=== PATIENT | female | born 1980 | race Caucasian/White ===

== ENCOUNTER 2019-07-14 05:26 | Day surgery (SDC) | payer OTHER ==
[2019-07-13 13:18] VITALS: BMI 32.5
[2019-07-14] MEDS ORDERED: IBUPROFEN 400 MG TABLET (FP) PO PRN (12:58)
[2019-07-14] MEDS ORDERED: ONDANSETRON 4 MG/2 ML VIAL IVPUSH PRN ×2 (12:58→14:37)
[2019-07-14] MEDS ORDERED: ACETAMINOPHEN 325 MG TABLET (FP) PO PRN (12:58)
--- NOTE | 2019-07-14 12:59 | HP ---
Admitting History and Physical - Admission History of Present Illness: 39 yo s/p SAB, ultrasound suspicious of retained products of conception Limitations to Obtaining History: No Limitations - Past Medical History ...LMP Comment: lmp- 3weeks ago - Smoking History Smoking history: Never smoked - Alcohol/Substance Use Hx Alcohol Use: No Home Medications - Allergies Allergies/Adverse Reactions: Allergies Allergy/AdvReac Type Severity Reaction Status Date / Time No Known Allergies Allergy Verified 07/13/19 13:18 - Home Medications Home Medications: Ambulatory Orders Simvastatin [Zocor -] 40 mg PO HS 07/13/19 Family Disease History - Family Disease History Family History: Denies Review of Systems - Review of Systems Constitutional: reports: No Symptoms Respiratory: reports: No Symptoms Gastrointestinal: reports: No Symptoms Musculoskeletal: reports: No Symptoms Endocrine: reports: No Symptoms Psychiatric: reports: No Symptoms Physical Examination Constitutional: Yes: Well Nourished, No Distress, Calm Cardiovascular: Yes: Regular Rate and Rhythm Respiratory: Yes: Regular, CTA Bilaterally Gastrointestinal: Yes: Soft Edema: No Neurological: Yes: WNL Psychiatric: Yes: Alert, Oriented Assessment/Plan 39 yo with retained products 1. Consents reviewed and signed 2. Routine labs reviewed 3. SCDs for DVT prophylaxis 4. Will proceed to OR
[2019-07-14] MEDS ORDERED: oxyCODONE HCL 5 MG TABLET PO PRN (14:37)
[2019-07-14] MEDS ORDERED: PROMETHAZINE HCL 25 MG/1 ML VIAL IVPUSH PRN (14:37)
[2019-07-14] MEDS ORDERED: PROPOFOL 20 ML ONE (15:07)
[2019-07-14] MEDS ORDERED: MIDAZOLAM HCL 2 MG/2 ML SINGLE DOSE VIAL ONE (15:07)
[2019-07-14] MEDS ORDERED: KETOROLAC TROMETHAMINE 30 MG/1 ML VIAL ONE (15:47)
--- NOTE | 2019-07-14 16:02 | OP ---
Operative Note - Note: Operative Date: 07/14/19 Pre-Operative Diagnosis: retained products of conception Operation: suction dilation and curettage Post-Operative Diagnosis: Same as Pre-op Surgeon: Camila Álvarez Anesthesiologist/TEXTILE DESIGNER: Norm Early Anesthesia: General Estimated Blood Loss (mls): 5 Fluid Volume Replaced (mls): 600 Operative Report Dictated: Yes
--- NOTE | 2019-07-14 16:56 | OP ---
DATE OF OPERATION: 07/14/2019 ATTENDING PHYSICIAN: Perez Álvarez MD PREOPERATIVE DIAGNOSIS: Retained products of conception. POSTOPERATIVE DIAGNOSIS: Retained products of conception. OPERATION: Suction dilation and curettage. ANESTHESIA: General, Jackson Mcgowan CRNA ESTIMATED BLOOD LOSS: 5 mL. FLUID GIVEN: 600 mL. INDICATIONS: Patient is a 39-year-old with a history of missed with ultrasound findings suspicious of retained products of conception. She was counseled regarding medical and surgical management. She opted for surgical removal. She was counseled regarding risks, benefits, alternatives, and complications of procedure including infection, bleeding, damage to surrounding organs such as bowel, bladder, uterine perforation. She expressed understanding and was brought to the operating room. DESCRIPTION OF PROCEDURE: Anesthesia was found to be adequate. Patient was prepped and draped in the normal sterile fashion. Placed in the dorsal lithotomy position using Cuco stirrups. A weighted speculum was placed in the patient's vagina. Anterior vagina was retracted using a [place]a retractor. Anterior lip of the cervix was grasped using an Allis clamp. The cervix was gently dilated to accommodate a size 21 Girish dilator. A size 7 curved suction curette was placed in the uterine cavity. Suction was performed to an operating pressure of 70 mmHg. Three passes were performed. Good tissue noted. Gentle, sharp curetting was performed. Sent to Pathology. All instruments were removed from the patient's vagina. Patient was awoken from anesthesia, brought to recovery room in stable condition. PEREZ ÁLVAREZ M.D. [id number]
[2019-07-14 18:24] VITALS: BP 120/60; PULSE 67; TEMP 98.5
--- NOTE | 2019-07-19 12:03 | PATH ---
Surgical Pathology Report Patient Name: JAMAR PALACIOS [facility]. Rec. #: [id number] /Age/Gender: 1980 (Age: 39) / F Account: [id number] Location: [facility] Taken: 07/15/2019 Received: 07/15/2019 Reported: 07/19/2019 Physicians: Camila Álvarez Specimen(s) Received A: RETAINED PRODUCTS OF CONCEPTION B: RETAINED PRODUCTS OF CONCEPTION Clinical History Retained products of conception Suction dilation and curettage Final Diagnosis A. RETAINED PRODUCTS OF CONCEPTION, SUCTION DILATION AND CURETTAGE: NO CHORIONIC VILLI OR DECIDUAL TISSUE PRESENT. FRAGMENTS OF SECRETORY TYPE ENDOMETRIUM. B. RETAINED PRODUCTS OF CONCEPTION, SUCTION DILATION AND CURETTAGE: NO CHORIONIC VILLI OR DECIDUAL TISSUE PRESENT. FRAGMENTS OF SECRETORY TYPE ENDOMETRIUM, SEPARATE ENDOCERVICAL TISSUE AND SQUAMOUS EPITHELIUM WITH NO SIGNIFICANT PATHOLOGIC CHANGE. Electronically Signed Diana Barcenas M.D. Gross Description A. Received in formalin, labeled "retained products of conception" are numerous pieces of kelly, irregular portions of soft tissue measuring 3.5 x 3.5 x 0.3 cm aggregate. The specimens are entirely submitted in two cassettes. B. Received in formalin, labeled "retained products of conception" are multiple kelly, irregular portions of soft tissue measuring 1.2 x 1.2 x 0.2 cm in aggregate. The specimens are submitted in toto in one cassette. __ KWS/07/15/2019 thom/07/15/2019
== END 2019-07-14 18:20 | disposition home or self-care (01) ==
LOC: JASU-SURG 05:26
PROVIDERS: ATTEND Obstetrics & Gynecology
PROC: 10D17ZZ Extraction of Products of Conception, Retained, Via Natural or Artificial Opening (ICD-10-PCS; principal; 2019-07-14 13:30)
DX: O73.1 Retained portions of placenta and membranes, without hemorrhage (principal); Z3A.13 13 weeks gestation of pregnancy
CPT/HCPCS: 86850; 86900; 86901; 88305-TC; 94760